=== PATIENT | female | born 1985 | race Caucasian/White ===

== ENCOUNTER 2021-08-24 15:45 | Emergency (ER) | payer OTHER, SELFPAY ==
[2021-08-24 15:59] VITALS: BP 103/87; PULSE 102; RESP 18; TEMP 36.8; O2SAT 100
--- NOTE | 2021-08-24 16:14 | ED.URI ---
HPI - URI/Sore Throat General Chief Complaint: Upper Respiratory Infection Stated Complaint: Sinus,Rt Mouth Pain Time Seen by Provider: 08/24/21 16:15 Source: patient, RN notes reviewed and old records reviewed Mode of arrival: ambulatory Limitations: no limitations History of Present Illness HPI Narrative: 35 year old female who presents to [facility] care with complaints of sinus congestion, sinus pressure, and pain with some throat irritation and sinus drainage for the past 1.5 to 2 week duration. Patient reports that they went to the [place] [address] about 2 weeks ago and every since she has had increasing sinus symptoms. Patient denies any known fevers chills or sweats, has taken DayQuil and NyQuil for her symptoms. Patient reports that she has had sinus pain and pressure to face and teeth at times hurt also her glands are swollen and painful. Patient reports that she has taken 2 Home COVID tests which have both been negative. MD elicited complaint: sore throat, rhinorrhea, nasal congestion and sinus pain Onset (ago): week(s) (1.5-2) Treatments prior to arrival: cold medicine Related Data Home Medications Medication Instructions Recorded Confirmed levonorgestrel 17.5 mcg/24 hrs 1 device intrauterine ONCE 08/24/21 08/24/21 (5yrs) 19.5mg intrauterine device (Kyleena) Allergies Allergy/AdvReac Type Severity Reaction Status Date / Time No Known Allergies Allergy Unknown Verified 08/24/21 16:07 Review of Systems Review of Systems: CONSTITUTIONAL: Denies known fever, chills, or sweats. EYES: Denies visual changes, redness, or discharge. ENT: Positive for rhinorrhea, congestion, sore throat, no otalgia. CARDIOVASCULAR: Denies chest pain, palpitations, or edema. RESPIRATORY: Denies cough or dyspnea. GASTROINTESTINAL: Denies abdominal pain, nausea, vomiting, or diarrhea. GENITOURINARY: Denies dysuria or hematuria. SKIN: Denies rash or itching. MUSCULOSKELETAL: Denies back pain, joint pain, or myalgia. NEUROLOGIC: frontal headache,no numbness, or weakness. PSYCHIATRIC: Denies anxiety or depression. [facility] Past Medical History Medical History Kidney stones removed Pilonidal cyst removed Surgical History Surgical History (Updated 08/24/21 @ 16:42 by Leonela Andersen NP) History of surgery on lower extremity carl from lower leg to ankle Previous section x2 Social History Social History (Updated 08/24/21 @ 16:37 by Leonela Andersen NP) Smoking status: Current some day smoker Alcohol intake: current Alcohol use details: social Substance use type: does not use Living arrangements: with family Gender identity (if verbalized by the patient): Female Comments At time of signature, agree with nursing past medical, surgical, social and family history. There is no relevant family history pertinent to the presenting complaint Exam Narrative: GENERAL: Well-appearing, well-nourished, and in no acute distress. HEAD: Normocephalic, atraumatic. EYES: PERRLA and EOMI. ENT: Nares red with swelling clear rhinorrhea no epistaxis. Mucous membranes moist.TM's normal with some dull light reflex, throat red with no lesions or exudates,no tonsil swelling noted,facial pressure maxillary NECK: Supple. lymphadenopathy CHEST: Clear to auscultation. No respiratory distress.SAO2 100% on room air HEART: Regular rate and rhythm. No murmur heard. Normal peripheral pulses. ABDOMEN: Soft, nontender, nondistended, normal active bowel sounds. EXTREMITIES: Normal range of motion. No edema. SKIN: Warm, dry, no rash. NEURO: No focal deficits. Alert and oriented x3. Course Course Level of Care: Express Care Visit Vital Signs Vital signs: Vital Signs Temperature 36.8 C 08/24/21 15:59 Pulse Rate 102 H 08/24/21 15:59 Respiratory Rate 18 08/24/21 15:59 Blood Pressure 103/87 08/24/21 15:59 Pulse Oximetry 100 08/24/21 15:59 Oxygen D
== END 2021-08-24 16:32 | disposition home or self-care (01) ==
PROVIDERS: Emergency Provider Registered Nurse
DX: J32.9 Chronic sinusitis, unspecified (principal); F17.200 Nicotine dependence, unspecified, uncomplicated
CPT/HCPCS: 99213; G0463